=== PATIENT | female | born 1955 | race Caucasian/White ===

== ENCOUNTER → 2022-09-11 | Outpatient (REF) | payer MEDICARE ==
[2022-09-11 17:51] LABS: BASO # 0.1 10^3/uL (0.0-0.2); BASO % 0.8 % (0.0-1.0); EOS # 0.1 10^3/uL (0.0-0.5); EOS % 2.2 % (0.0-3.0); HEMATOCRIT 41.5 % (36.0-47.0); HEMOGLOBIN 13.7 g/dl (12.0-15.5); LYMPH # 1.5 10^3/uL (1.5-5.0); LYMPH % 23.7 % (24.0-44.0); MEAN CORPUSCULAR VOLUME 87.7 fl (80.0-96.0); MONO # 0.3 10^3/uL (0.0-0.8); MONO % 4.6 % (2.0-8.0); NEUTROPHILS # 4.5 10^3/uL (1.5-8.5); NEUTROPHILS % 68.4 % (36.0-66.0); PLATELET COUNT, AUTOMATED 175 10^3/uL (150-450); RED BLOOD COUNT 4.73 10^6/uL (4.00-5.40); WHITE BLOOD COUNT 6.5 10^3/uL (4.0-10.0)
[2022-09-11 17:58] LABS: ALBUMIN 3.3 G/DL (3.2-5.2); BILIRUBIN,TOTAL 0.3 MG/DL (0.3-1.2); CALCIUM LEVEL 9.1 MG/DL (8.3-10.6); CHOLESTEROL RISK RATIO 2.71 (<5); CREATININE FOR GFR 1.02 MG/DL (0.55-1.30); FREE T4 0.88 NG/DL (0.89-1.76); GLOMERULAR FILTRATION RATE 58.1 (>45); HDL CHOLESTEROL 91.6 MG/DL (>40); LDL CHOLESTEROL 124.2 MG/DL (<100); NON-HDL-C 157.4 MG/DL; POTASSIUM SERUM 4.2 MMOL/L (3.5-5.1); THYROID STIMULATING HORMONE 3.358 uIU/ML (0.55-4.78); TOTAL PROTEIN 6.4 G/DL (5.7-8.2)
[2022-09-11 17:59] LABS: FOLATE 10.21 NG/ML (>5.4)
[2022-09-11 18:00] LABS: TOTAL 25(OH) VITAMIN D 24.4 NG/ML (20.0-100.0)
[2022-09-11 18:13] LABS: HEMOGLOBIN A1c 5.2 % (4.0-6.0)
== END ==
LOC: M SFHCLERA 10:38
PROVIDERS: ATTEND Family Medicine
DX: E66.9 Obesity, unspecified (principal); R53.83 Other fatigue; Z79.899 Other long term (current) drug therapy

== ENCOUNTER → 2022-10-21 | Outpatient (CLI) | payer MEDICARE ==
[2022-10-21 11:43] LABS: AMORPHOUS SEDIMENT SMALL (NEGATIVE); APPEARANCE, URINE TURBID (CLEAR); BACTERIA, URINE AUTO NEGATIVE (NEGATIVE); BILIRUBIN, URINE AUTO 1+ (NEGATIVE); BLOOD, URINE BLOOD NEGATIVE (NEGATIVE); COLOR, URINE AMBER (YELLOW); GLUCOSE, URINE (UA) AUTO NEGATIVE (NEGATIVE); KETONE, URINE AUTO TRACE mg/dL (NEGATIVE); LEUKOCYTE ESTERASE, URINE AUTO TRACE (NEGATIVE); MUCUS, URINE LARGE (NEGATIVE); NITRITE, URINE AUTO NEGATIVE (NEGATIVE); PROTEIN, URINE AUTO NEGATIVE (NEGATIVE); RBC, URINE AUTO 0 /HPF (0-3); SPECIFIC GRAVITY URINE AUTO 1.029 (1.002-1.035); SQUAMOUS EPITHELIAL CELL UR AU 19 /HPF (0-6); WBC, URINE AUTO 13 /HPF (0-3)
== END ==
LOC: M LAB 09:58
PROVIDERS: ATTEND Nurse Practitioner Family
DX: L90.0 Lichen sclerosus et atrophicus (principal); Z79.899 Other long term (current) drug therapy

== ENCOUNTER → 2022-10-21 | Outpatient (REF) | payer MEDICARE | LOC: M SFHCDERM 09:48 | PROVIDERS: ATTEND Nurse Practitioner Family | DX: L90.0 Lichen sclerosus et atrophicus (principal) ==

== ENCOUNTER → 2022-11-27 | Outpatient (CLI) | payer MEDICARE ==
[2022-11-27 15:00] LABS: APPEARANCE, URINE TURBID (CLEAR); BACTERIA, URINE AUTO 2+ (NEGATIVE); BILIRUBIN, URINE AUTO NEGATIVE (NEGATIVE); BLOOD, URINE BLOOD 1+ (NEGATIVE); COLOR, URINE AMBER (YELLOW); GLUCOSE, URINE (UA) AUTO NEGATIVE (NEGATIVE); KETONE, URINE AUTO NEGATIVE (NEGATIVE); LEUKOCYTE ESTERASE, URINE AUTO TRACE (NEGATIVE); MUCUS, URINE SMALL (NEGATIVE); NITRITE, URINE AUTO NEGATIVE (NEGATIVE); PROTEIN, URINE AUTO NEGATIVE (NEGATIVE); RBC, URINE AUTO 8 /HPF (0-3); SPECIFIC GRAVITY URINE AUTO 1.017 (1.002-1.035); SQUAMOUS EPITHELIAL CELL UR AU 16 /HPF (0-6); UROBILINOGEN, URINE AUTO 0.2 mg/dL (0.0-2.0); WBC, URINE AUTO 8 /HPF (0-3)
[2022-11-28 11:11] LABS: HSV TYPE I IgG SPECIFIC 8.22 index (0.00-0.90); HSV TYPE II IgG SPECIFIC 9.04 index (0.00-0.90)
== END ==
LOC: M PLALAB 10:28
PROVIDERS: ATTEND Urology
DX: R30.0 Dysuria (principal)

== ENCOUNTER → 2023-01-02 | Outpatient (REF) | payer MEDICARE | LOC: M SFHCPLAZ 10:05 | PROVIDERS: ATTEND Nurse Practitioner Family | DX: L43.9 Lichen planus, unspecified (principal) ==

== ENCOUNTER → 2023-02-06 | Outpatient (REF) | payer MEDICARE | LOC: M SFHCPLAZ 09:32 | PROVIDERS: ATTEND Nurse Practitioner Family | DX: L43.9 Lichen planus, unspecified (principal) ==

== ENCOUNTER → 2023-04-29 | Outpatient (REF) | payer MEDICARE ==
[~2023-04-29] MED LIST: CITA20TA7 PO; CLOB0.0548 TOP; CLON1TAB8 PO; CVS1CRE56 TOP; ESTR2TAB3 PO; HYDR-4517 PO; HYDR200T46 PO; MELO15TA28 PO; NYST1POW9 TOP; OMEP-173 PO; RIZA5TAB52 PO; TRAZ-257 PO
== END ==
LOC: M SFHCLERA 16:44
PROVIDERS: ATTEND Family Medicine
DX: R05.9 Cough, unspecified (principal)

== ENCOUNTER 2023-05-04 13:34 | Observation (INO) | payer MEDICARE ==
[~2023-05-04] VITALS: Ht 154.9 cm; Wt 88.1 kg
[2023-05-04] MEDS ORDERED: fentaNYL 100 MCG/2 ML INJECTION IV ONE (15:10)
[2023-05-04] MEDS ORDERED: tiZANidine 4 MG TAB PO ONE (16:05)
[2023-05-04 16:56] LABS: BASO % 0.1 % (0.0-1.0); EOS % 0.1 % (0.0-3.0); HEMOGLOBIN 12.7 g/dl (12.0-15.5); LYMPH # 0.8 10^3/uL (1.5-5.0); LYMPH % 5.9 % (24.0-44.0); MEAN CORPUSCULAR HEMOGLOBIN 29.7 pg (27.0-33.0); MEAN CORPUSCULAR HGB CONC 34.3 g/dl (32.0-36.5); MEAN CORPUSCULAR VOLUME 86.4 fl (80.0-96.0); MONO # 0.4 10^3/uL (0.0-0.8); MONO % 2.9 % (2.0-8.0); NEUTROPHILS # 12.9 10^3/uL (1.5-8.5); PLATELET COUNT, AUTOMATED 196 10^3/uL (150-450); RED BLOOD COUNT 4.28 10^6/uL (4.00-5.40); WHITE BLOOD COUNT 14.3 10^3/uL (4.0-10.0)
[2023-05-04] MEDS ORDERED: CITA20TA7 PO (17:17)
[2023-05-04] MEDS ORDERED: CLOB0.0548 TOP (17:17)
[2023-05-04] MEDS ORDERED: OMEP-173 PO (17:17)
[2023-05-04] MEDS ORDERED: ESTR2TAB3 PO (17:17)
[2023-05-04] MEDS ORDERED: HYDR200T46 PO (17:17)
[2023-05-04] MEDS ORDERED: CLON1TAB8 PO (17:17)
[2023-05-04] MEDS ORDERED: CVS1CRE56 TOP (17:17)
[2023-05-04] MEDS ORDERED: TRAZ-257 PO (17:17)
[2023-05-04] MEDS ORDERED: HYDR-4517 PO (17:17)
[2023-05-04] MEDS ORDERED: MELO15TA28 PO (17:17)
[2023-05-04] MEDS ORDERED: NYST1POW9 TOP (17:17)
[2023-05-04] MEDS ORDERED: RIZA5TAB52 PO (17:17)
[2023-05-04] MEDS ORDERED: ONDANSETRON 4MG 2ML VIAL IV PRN (17:20)
[2023-05-04] MEDS ORDERED: HOME MED LIST COMPLETE! XX SCH (17:20)
[2023-05-04] MEDS ORDERED: ACETAMINOPHEN 500 MG TAB PO PRN (17:20)
[2023-05-04] MEDS ORDERED: MORPHINE 2 MG/ML 1ML VIAL IV PRN (17:20)
[2023-05-04 17:28] LABS: BLOOD UREA NITROGEN 16 MG/DL (9-23); CALCIUM LEVEL 8.4 MG/DL (8.3-10.6); CARBON DIOXIDE LEVEL 27 MMOL/L (20-31); CHLORIDE LEVEL 104 MMOL/L (98-107); GLOMERULAR FILTRATION RATE > 60.0 (>45); GLUCOSE, FASTING 117 MG/DL (74-106); POTASSIUM SERUM 3.2 MMOL/L (3.5-5.1); SODIUM LEVEL 138 MMOL/L (136-145)
[2023-05-04] MEDS: LR 1,000 ML IV SCH (17:48)
[2023-05-04] MEDS: traZODone 100 MG TAB PO SCH (21:24)
[2023-05-04] MEDS: CitaloPRAM (CeleXA) 20 MG TAB PO SCH (21:24)
[2023-05-04] MEDS: HYDROXYCHLOROQUINE 200 MG TAB PO SCH (21:24)
[2023-05-04] MEDS: clonazePAM 1 MG TAB PO PRN (21:25)
[2023-05-04] MEDS: MORPHINE 2 MG/ML 1ML VIAL IV PRN (21:26)
[2023-05-05] VITALS (9 sets, daily range): BP systolic 124–165; BP diastolic 71–80; TEMP 97.6–98.2; O2SAT 93–96
[2023-05-05 00:13] LABS: CK-MB VALUE MASS < 1.0 NG/ML (<3.6)
[2023-05-05 00:15] LABS: CPK CREATINE PHOSPHOKINASE 109 U/L (34-145); MB/CK RELATIVE INDEX 0.91 (< OR =4)
[2023-05-05 06:09] LABS: HEMATOCRIT 33.2 % (36.0-47.0); HEMOGLOBIN 11.3 g/dl (12.0-15.5); MEAN CORPUSCULAR VOLUME 88.1 fl (80.0-96.0); PLATELET COUNT, AUTOMATED 153 10^3/uL (150-450); RED BLOOD COUNT 3.77 10^6/uL (4.00-5.40); WHITE BLOOD COUNT 6.5 10^3/uL (4.0-10.0)
[2023-05-05 06:30] LABS: BLOOD UREA NITROGEN 13 MG/DL (9-23); CARBON DIOXIDE LEVEL 29 MMOL/L (20-31); CHLORIDE LEVEL 107 MMOL/L (98-107); CREATININE FOR GFR 0.88 MG/DL (0.55-1.30); GLOMERULAR FILTRATION RATE > 60.0 (>45); GLUCOSE, FASTING 90 MG/DL (74-106); MAGNESIUM LEVEL 1.5 MG/DL (1.8-2.4); POTASSIUM SERUM 3.3 MMOL/L (3.5-5.1); SODIUM LEVEL 140 MMOL/L (136-145)
[2023-05-05] MEDS: LR 1,000 ML IV SCH ×3 (06:40→11:58)
[2023-05-05 08:08] LABS: CK-MB VALUE MASS < 1.0 NG/ML (<3.6)
[2023-05-05 08:10] LABS: CPK CREATINE PHOSPHOKINASE 120 U/L (34-145); MB/CK RELATIVE INDEX 0.83 (< OR =4)
[2023-05-05] MEDS: OMEPRAZOLE 20MG CAP PO SCH (08:13)
[2023-05-05] MEDS: MAG SULF 1GM/100ML (MAG RUN) 1 GM in IV 1 EA IV SCH ×3 (08:13→11:56)
[2023-05-05] MEDS: MORPHINE 2 MG/ML 1ML VIAL IV PRN ×3 (08:13→20:49)
[2023-05-05] MEDS ORDERED: POTASSIUM CHLORIDE 10MEQ SR TABLET PO ONE (09:00)
[2023-05-05] MEDS: LIDOCAINE 5% (LIDODERM) PATCH TD SCH (11:59)
[2023-05-05] MEDS: ACETAMINOPHEN 500 MG TAB PO SCH ×2 (12:06→18:00)
[2023-05-05] MEDS ORDERED: MORPHINE 2 MG/ML 1ML VIAL IV PRN (13:20)
[2023-05-05] MEDS: CYCLOBENZAPRINE 5MG TABLET PO SCH ×2 (14:00→22:27)
[2023-05-05] MEDS ORDERED: RIZATRIPTAN MLT 10 MG TAB PO PRN (15:05)
[2023-05-05] MEDS ORDERED: MIDAZOLAM INJ 2MG/2ML VIAL As Ordered ONE (15:43)
[2023-05-05] MEDS ORDERED: propofoL 200 MG/20 ML VIAL As Ordered ONE (15:43)
[2023-05-05] MEDS ORDERED: ONDANSETRON 4MG 2ML VIAL As Ordered ONE (15:43)
[2023-05-05] MEDS ORDERED: ACETAMINOPHEN 1000MG 100ML IV BAG As Ordered ONE (15:43)
[2023-05-05] MEDS ORDERED: LIDOCAINE 2% 100MG/5ML SDV (FOR ANES.) As Ordered ONE (15:43)
[2023-05-05] MEDS ORDERED: fentaNYL 100 MCG/2 ML INJECTION As Ordered ONE (15:44)
[2023-05-05] MEDS ORDERED: ceFAZolin 2 GM/D5W 50 ML IV BAG As Ordered ONE (16:00)
[2023-05-05] MEDS ORDERED: oxyCODONE 5MG TAB PO PRN (17:25)
[2023-05-05] MEDS ORDERED: LR 1,000 ML IV SCH (17:25)
[2023-05-05] MEDS ORDERED: ONDANSETRON 4MG 2ML VIAL IV PRN (17:25)
[2023-05-05] MEDS ORDERED: HYDROMORPHONE HCL 0.5 MG/ 0.5 ML SYRINGE IV PRN (17:25)
[2023-05-05] MEDS: fentaNYL 100 MCG/2 ML INJECTION IV PRN ×3 (17:59→18:18)
[2023-05-05 20:59] LABS: CK-MB VALUE MASS 2.5 NG/ML (<3.6)
[2023-05-05 21:04] LABS: MB/CK RELATIVE INDEX 0.65 (< OR =4)
[2023-05-05] MEDS: HYDROXYCHLOROQUINE 200 MG TAB PO SCH (22:27)
[2023-05-05] MEDS: traZODone 100 MG TAB PO SCH (22:27)
[2023-05-05] MEDS: clonazePAM 1 MG TAB PO PRN (22:27)
[2023-05-05] MEDS: ceFAZolin SOD 2 GM in IV 1 EA IV SCH (22:28)
[2023-05-05] MEDS: CitaloPRAM (CeleXA) 20 MG TAB PO SCH (22:28)
[2023-05-06] VITALS (12 sets, daily range): BP systolic 122–150; BP diastolic 69–81; TEMP 97.8–98.1; O2SAT 89–97
[2023-05-06] MEDS: LR 1,000 ML IV SCH ×2 (00:08→07:19)
[2023-05-06] MEDS: ACETAMINOPHEN 500 MG TAB PO SCH ×3 (01:14→12:00)
[2023-05-06] MEDS ORDERED: CALCIUM CARBONATE 500 MG CHEW U/D PO ONE (02:00)
[2023-05-06] MEDS: MORPHINE 2 MG/ML 1ML VIAL IV PRN (05:24)
[2023-05-06] MEDS: ceFAZolin SOD 2 GM in IV 1 EA IV SCH (06:06)
[2023-05-06] MEDS: CYCLOBENZAPRINE 5MG TABLET PO SCH (06:06)
[2023-05-06 06:36] LABS: HEMATOCRIT 30.8 % (36.0-47.0); HEMOGLOBIN 10.6 g/dl (12.0-15.5); MEAN CORPUSCULAR HEMOGLOBIN 30.5 pg (27.0-33.0); MEAN CORPUSCULAR HGB CONC 34.4 g/dl (32.0-36.5); MEAN CORPUSCULAR VOLUME 88.8 fl (80.0-96.0); PLATELET COUNT, AUTOMATED 174 10^3/uL (150-450); RED BLOOD COUNT 3.47 10^6/uL (4.00-5.40); WHITE BLOOD COUNT 12.5 10^3/uL (4.0-10.0)
[2023-05-06 07:10] LABS: BLOOD UREA NITROGEN 9 MG/DL (9-23); CALCIUM LEVEL 8.1 MG/DL (8.3-10.6); CARBON DIOXIDE LEVEL 26 MMOL/L (20-31); CHLORIDE LEVEL 107 MMOL/L (98-107); CREATININE FOR GFR 0.97 MG/DL (0.55-1.30); GLOMERULAR FILTRATION RATE > 60.0 (>45); GLUCOSE, FASTING 113 MG/DL (74-106); MAGNESIUM LEVEL 1.9 MG/DL (1.8-2.4); SODIUM LEVEL 139 MMOL/L (136-145)
[2023-05-06] MEDS ORDERED: oxyCODONE 5MG TAB PO PRN ×2 (08:55)
[2023-05-06] MEDS ORDERED: MELOXICAM (MOBIC) 7.5 MG TAB PO SCH (09:00)
[2023-05-06] MEDS: OMEPRAZOLE 20MG CAP PO SCH (09:03)
[2023-05-06] MEDS: LIDOCAINE 5% (LIDODERM) PATCH TD SCH (09:04)
[2023-05-06] MEDS ORDERED: HYDR-4517 PO ×2 (10:56→11:43)
[2023-05-06] MEDS ORDERED: LIDO5TD TD ×2 (10:56→11:43)
[2023-05-06] MEDS ORDERED: ACET-683 PO ×2 (10:56→11:43)
[2023-05-06] MEDS ORDERED: CYCL5TAB PO ×2 (10:56→11:43)
[2023-05-06] MEDS ORDERED: estradioL 1 MG TAB PO SCH (21:00)
== END 2023-05-06 13:30 | disposition home health service (06) ==
LOC: M ED 13:34 → EDBD 13:34 → M ED INP 13:35 → M MS4PR 05-05 14:20
PROVIDERS: ADMIT Family Medicine; ATTEND Family Medicine
DX: S42.331A Displaced oblique fracture of shaft of humerus, right arm, initial encounter for closed fracture (principal); S02.2XXA Fracture of nasal bones, initial encounter for closed fracture; W00.0XXA Fall on same level due to ice and snow, initial encounter; Y92.410 Unspecified street and highway as the place of occurrence of the external cause; Y93.01 Activity, walking, marching and hiking; Y99.9 Unspecified external cause status; E87.6 Hypokalemia; M54.9 Dorsalgia, unspecified; G89.29 Other chronic pain; K21.9 Gastro-esophageal reflux disease without esophagitis; F41.9 Anxiety disorder, unspecified; G43.909 Migraine, unspecified, not intractable, without status migrainosus; N95.8 Other specified menopausal and perimenopausal disorders; R94.31 Abnormal electrocardiogram [ECG] [EKG]; L43.9 Lichen planus, unspecified; G47.00 Insomnia, unspecified; Z98.1 Arthrodesis status; Z79.899 Other long term (current) drug therapy; Z79.890 Hormone replacement therapy; Z79.891 Long term (current) use of opiate analgesic; Z87.891 Personal history of nicotine dependence
CPT/HCPCS: 24515; 36415; 70450; 70486; 71045; 72125; 73060; 76000; 80048; 82550; 82553; 83735; 84484; 85025; 85027; 87635; 93005; 96365; 96366; 96367; 96374; 96375; 96376; 97161; 97530; 99285; C1713; G0378; J0131; J0665; J0690; J1100; J2250; J2405; J3010; J3475

== ENCOUNTER → 2023-05-13 | Outpatient (CLI) | payer MEDICARE ==
[~2023-05-13] MED LIST changes: +ACET-683 PO; +CYCL5TAB PO; +LIDO5TD TD
== END ==
LOC: M SOG 08:03
PROVIDERS: ATTEND Orthopaedic Surgery
DX: S42.351A Displaced comminuted fracture of shaft of humerus, right arm, initial encounter for closed fracture (principal); R22.31 Localized swelling, mass and lump, right upper limb

== ENCOUNTER → 2023-05-29 | Outpatient (CLI) | payer MEDICARE | LOC: M SOG 07:55 | PROVIDERS: ATTEND Orthopaedic Surgery | DX: S42.351D Displaced comminuted fracture of shaft of humerus, right arm, subsequent encounter for fracture with routine healing (principal) ==

== ENCOUNTER → 2023-07-03 | Outpatient (CLI) | payer MEDICARE | LOC: M SOG 07:57 | PROVIDERS: ATTEND Orthopaedic Surgery | DX: S42.351A Displaced comminuted fracture of shaft of humerus, right arm, initial encounter for closed fracture (principal); Y93.9 Activity, unspecified; Y92.9 Unspecified place or not applicable ==

== ENCOUNTER → 2023-07-14 | Outpatient (CLI) | payer MEDICARE | LOC: M SOG 09:24 | PROVIDERS: ATTEND Physician Assistant | DX: S42.351D Displaced comminuted fracture of shaft of humerus, right arm, subsequent encounter for fracture with routine healing (principal) ==

== ENCOUNTER → 2023-07-24 | Outpatient (CLI) | payer MEDICARE | LOC: M SOG 13:44 | PROVIDERS: ATTEND Orthopaedic Surgery | DX: S42.351D Displaced comminuted fracture of shaft of humerus, right arm, subsequent encounter for fracture with routine healing (principal) ==

== ENCOUNTER → 2023-07-24 | Outpatient (CLI) | payer MEDICARE | LOC: M SOG 13:41 | PROVIDERS: ATTEND Orthopaedic Surgery | DX: S42.351D Displaced comminuted fracture of shaft of humerus, right arm, subsequent encounter for fracture with routine healing (principal) ==

== ENCOUNTER → 2023-07-30 | Outpatient (CLI) | payer MEDICARE ==
[2023-07-30 13:38] LABS: APPEARANCE, URINE HAZY (CLEAR); BACTERIA, URINE AUTO 1+ (NEGATIVE); BASO % 0.6 % (0.0-1.0); BILIRUBIN, URINE AUTO NEGATIVE (NEGATIVE); BLOOD, URINE BLOOD NEGATIVE (NEGATIVE); COLOR, URINE YELLOW (YELLOW); EOS # 0.1 10^3/uL (0.0-0.5); EOS % 1.4 % (0.0-3.0); GLUCOSE, URINE (UA) AUTO NEGATIVE (NEGATIVE); HEMATOCRIT 39.1 % (36.0-47.0); HEMOGLOBIN 13.2 g/dl (12.0-15.5); KETONE, URINE AUTO NEGATIVE (NEGATIVE); LEUKOCYTE ESTERASE, URINE AUTO 2+ (NEGATIVE); LYMPH # 1.2 10^3/uL (1.5-5.0); MEAN CORPUSCULAR HEMOGLOBIN 29.4 pg (27.0-33.0); MEAN CORPUSCULAR HGB CONC 33.8 g/dl (32.0-36.5); MEAN CORPUSCULAR VOLUME 87.1 fl (80.0-96.0); MONO # 0.3 10^3/uL (0.0-0.8); MONO % 5.6 % (2.0-8.0); MUCUS, URINE SMALL (NEGATIVE); NEUTROPHILS # 3.3 10^3/uL (1.5-8.5); NEUTROPHILS % 67.2 % (36.0-66.0); NITRITE, URINE AUTO NEGATIVE (NEGATIVE); PLATELET COUNT, AUTOMATED 180 10^3/uL (150-450); PROTEIN, URINE AUTO NEGATIVE (NEGATIVE); RBC, URINE AUTO 3 /HPF (0-3); RED BLOOD COUNT 4.49 10^6/uL (4.00-5.40); SPECIFIC GRAVITY URINE AUTO 1.015 (1.002-1.035); SQUAMOUS EPITHELIAL CELL UR AU 3 /HPF (0-6); UROBILINOGEN, URINE AUTO 0.2 mg/dL (0.0-2.0); WBC, URINE AUTO 7 /HPF (0-3)
[2023-07-30 13:43] LABS: ERYTHROCYTE SEDIMENTATION RATE 8 mm/hr (0-30)
== END ==
LOC: M RAD 12:16
PROVIDERS: ATTEND Orthopaedic Surgery Hand Surgery
DX: Z78.9 Other specified health status (principal); Z79.899 Other long term (current) drug therapy

== ENCOUNTER 2023-08-05 06:04 | Inpatient (IN) | payer MEDICARE ==
[2023-08-05] VITALS (10 sets, daily range): BP systolic 74–121; BP diastolic 40–73; TEMP 97.9–98.4; O2SAT 92–95
[~2023-08-05] VITALS: Ht 154.9 cm; Wt 87.8 kg
[2023-08-05] MEDS ORDERED: LR 1,000 ML IV SCH (06:25)
[2023-08-05] MEDS ORDERED: LIDOCAINE 2% 100MG/5ML SDV (FOR ANES.) As Ordered ONE (06:42)
[2023-08-05] MEDS ORDERED: propofoL 200 MG/20 ML VIAL As Ordered ONE (06:42)
[2023-08-05] MEDS ORDERED: ACETAMINOPHEN 1000MG 100ML IV BAG As Ordered ONE (06:42)
[2023-08-05] MEDS ORDERED: KETOROLAC 60MG 2ML VIAL As Ordered ONE (06:43)
[2023-08-05] MEDS ORDERED: SUGAMMADEX SODIUM 500 MG/5 ML VIAL (BRIDION) As Ordered ONE (06:43)
[2023-08-05] MEDS ORDERED: ONDANSETRON 4MG 2ML VIAL As Ordered ONE (06:43)
[2023-08-05] MEDS ORDERED: ROCURONIUM BROMIDE 50MG/5ML VIAL As Ordered ONE (06:43)
[2023-08-05] MEDS ORDERED: MIDAZOLAM INJ 2MG/2ML VIAL As Ordered ONE (06:46)
[2023-08-05] MEDS ORDERED: fentaNYL 100 MCG/2 ML INJECTION As Ordered ONE (06:46)
[2023-08-05] MEDS: BACITRACIN OINTMENT 30GM TUBE As Ordered ONE (07:13)
[2023-08-05] MEDS: dexAMETHasone 10MG/1ML VIAL PRES.FREE PN ONE (07:15)
[2023-08-05] MEDS: LIDOCAINE 1% SDV 5ML VIAL PN ONE (07:15)
[2023-08-05] MEDS: MIDAZOLAM INJ 2MG/2ML VIAL IV PRN (07:35)
[2023-08-05] MEDS: fentaNYL 100 MCG/2 ML INJECTION IV PRN (07:40)
[2023-08-05] MEDS: EPINEPHrine INJ 1 MG/ML 1ML AMP PN ONE (07:40)
[2023-08-05] MEDS: ROPIvacaine 0.5% 30ML VIAL PN ONE (07:45)
[2023-08-05] MEDS: ceFAZolin SOD 2 GM in IV 1 EA IV ONE (08:25)
[2023-08-05] MEDS: LIDOCAINE W/EPINEPHRINE 1% 20ML VIAL As Ordered ONE (08:35)
[2023-08-05] MEDS ORDERED: PHENYLephrine 500MCG 5ML (100MCG/ML) SYRINGE As Ordered ONE (08:39)
[2023-08-05] MEDS ORDERED: HYDROmorphone HCL 2MG/ML 1ML VIAL As Ordered ONE (10:16)
[2023-08-05] MEDS: TRANEXAMIC ACID 100 MG/ML 10ML VIAL As Ordered ONE (12:30)
[2023-08-05] MEDS: VANCOMYCIN 1000MG/20ML VIAL As Ordered ONE (12:40)
[2023-08-05] MEDS ORDERED: PHENYLEPHRINE 10MG/ML 1ML VIAL As Ordered ONE (12:54)
[2023-08-05] MEDS ORDERED: oxyCODONE 5MG TAB PO PRN ×2 (13:55→14:20)
[2023-08-05] MEDS ORDERED: fentaNYL 100 MCG/2 ML INJECTION IV PRN (13:55)
[2023-08-05] MEDS ORDERED: ONDANSETRON 4MG 2ML VIAL IV PRN (13:55)
[2023-08-05] MEDS ORDERED: ACETAMINOPHEN TAB 650MG DOSE (2X325MG) PO PRN ×2 (14:20→23:15)
[2023-08-05] MEDS ORDERED: zolPIDEM TARTRATE 5 MG TAB PO PRN (14:20)
[2023-08-05] MEDS ORDERED: SENNA 8.6 MG TAB (SENOKOT) PO PRN (14:20)
[2023-08-05] MEDS ORDERED: diphenhydrAMINE 50MG/ML VIAL IV PRN (14:20)
[2023-08-05] MEDS ORDERED: MORPHINE 4 MG/ML 1ML VIAL IV PRN (14:20)
[2023-08-05] MEDS: METOCLOPRAMIDE INJ 10MG/2ML VIAL IV PRN (14:36)
[2023-08-05] MEDS: LR 1,000 ML IV SCH (14:37)
[2023-08-05] MEDS ORDERED: KETOROLAC 30 MG/ML 1ML VIAL IV SCH (15:00)
[2023-08-05] MEDS ORDERED: clonazePAM 1 MG TAB PO PRN (16:15)
[2023-08-05] MEDS ORDERED: PILL CUTTER 1 EACH XX ONE (16:24)
[2023-08-05] MEDS: ceFAZolin SOD 2 GM in IV 1 EA IV SCH (16:28)
[2023-08-05] MEDS: HYDROmorphone 2 MG TAB PO PRN (16:29)
[2023-08-05] MEDS: RIZATRIPTAN MLT 10 MG TAB PO PRN (16:53)
[2023-08-05] MEDS: KETOROLAC 30 MG/ML 1ML VIAL IV SCH (18:02)
[2023-08-05] MEDS: NS 1,000 ML IV ONE (23:07)
[2023-08-05] MEDS: NYSTATIN 100,000 UNITS/GM TOPICAL PWD 15GM TOP SCH (23:09)
[2023-08-05] MEDS: HYDROXYCHLOROQUINE 200 MG TAB PO SCH (23:09)
[2023-08-05] MEDS: CLOBETASOL PROPIONATE EMOLLIENT 0.05% CR 60 GM TOP SCH (23:10)
[2023-08-05] MEDS: CitaloPRAM (CeleXA) 20 MG TAB PO SCH (23:30)
[2023-08-05] MEDS: traZODone 100 MG TAB PO SCH (23:30)
[2023-08-05] MEDS: DOCUSATE SODIUM 100MG CAPSULE PO SCH (23:30)
[2023-08-05] MEDS: estradioL 1 MG TAB PO SCH (23:31)
[2023-08-05 23:44] LABS: VENOUS BASE EXCESS -0.6 (-2.0-2.0); VENOUS HCO3 23.8 MMOL/L (23.0-27.0); VENOUS O2 SATURATION 96.9 % (60.0-80.0); VENOUS PARTIAL PRESSURE CO2 38.1 mmHg (38.0-50.0); VENOUS PARTIAL PRESSURE O2 100.5 mmHg (30.0-50.0); VENOUS PH 7.413 UNITS (7.330-7.430); VENOUS STANDARD HCO3 23.9 MMOL/L; VENOUS TOTAL CO2 24.9 MMOL/L (24.0-28.0)
[2023-08-06] VITALS (9 sets, daily range): BP systolic 97–129; BP diastolic 48–76; TEMP 97.7–97.9; O2SAT 94–97
[2023-08-06 00:14] LABS: ALBUMIN 2.4 G/DL (3.2-5.2); ALKALINE PHOSPHATASE 68 U/L (46-116); ALT/SGPT < 9 U/L (7.0-40); AST/SGOT 11 U/L (<34); BILIRUBIN,TOTAL 0.2 MG/DL (0.3-1.2); BLOOD UREA NITROGEN 13 MG/DL (9-23); CALCIUM LEVEL 7.6 MG/DL (8.3-10.6); CARBON DIOXIDE LEVEL 26 MMOL/L (20-31); CHLORIDE LEVEL 109 MMOL/L (98-107); CREATININE FOR GFR 0.86 MG/DL (0.55-1.30); GLOMERULAR FILTRATION RATE > 60.0 (>45); GLUCOSE, FASTING 104 MG/DL (74-106); MAGNESIUM LEVEL 1.2 MG/DL (1.8-2.4); POTASSIUM SERUM 3.6 MMOL/L (3.5-5.1); SODIUM LEVEL 140 MMOL/L (136-145); TOTAL PROTEIN 4.5 G/DL (5.7-8.2)
[2023-08-06] MEDS: ACETAMINOPHEN *IV* 1,000 MG in IV 1 EA IV ONE (00:30)
[2023-08-06 00:39] LABS: BASO % 0.1 % (0.0-1.0); HEMATOCRIT 25.2 % (36.0-47.0); HEMOGLOBIN 8.6 g/dl (12.0-15.5); LYMPH # 0.7 10^3/uL (1.5-5.0); LYMPH % 8.4 % (24.0-44.0); MEAN CORPUSCULAR HEMOGLOBIN 29.3 pg (27.0-33.0); MEAN CORPUSCULAR HGB CONC 34.1 g/dl (32.0-36.5); MEAN CORPUSCULAR VOLUME 85.7 fl (80.0-96.0); MONO # 0.5 10^3/uL (0.0-0.8); NEUTROPHILS # 6.5 10^3/uL (1.5-8.5); NEUTROPHILS % 83.7 % (36.0-66.0); PLATELET COUNT, AUTOMATED 149 10^3/uL (150-450); RED BLOOD COUNT 2.94 10^6/uL (4.00-5.40); WHITE BLOOD COUNT 7.8 10^3/uL (4.0-10.0)
[2023-08-06] MEDS: MAGNESIUM OXIDE 400MG TAB (MAG-OX) PO ONE (00:50)
[2023-08-06] MEDS: MAG SULF 1GM/100ML (MAG RUN) 1 GM in IV 1 EA IV SCH (01:37)
[2023-08-06] MEDS: oxyCODONE 5MG TAB PO PRN ×2 (03:22→07:44)
[2023-08-06 06:20] LABS: BASO % 0.1 % (0.0-1.0); EOS % 0.1 % (0.0-3.0); HEMOGLOBIN 8.6 g/dl (12.0-15.5); LYMPH # 1.1 10^3/uL (1.5-5.0); LYMPH % 14.2 % (24.0-44.0); MEAN CORPUSCULAR HEMOGLOBIN 29.3 pg (27.0-33.0); MEAN CORPUSCULAR HGB CONC 34.4 g/dl (32.0-36.5); MONO # 0.6 10^3/uL (0.0-0.8); MONO % 7.7 % (2.0-8.0); NEUTROPHILS # 6.2 10^3/uL (1.5-8.5); NEUTROPHILS % 77.5 % (36.0-66.0); PLATELET COUNT, AUTOMATED 144 10^3/uL (150-450); RED BLOOD COUNT 2.94 10^6/uL (4.00-5.40)
[2023-08-06 06:48] LABS: BLOOD UREA NITROGEN 12 MG/DL (9-23); CALCIUM LEVEL 7.6 MG/DL (8.3-10.6); CARBON DIOXIDE LEVEL 28 MMOL/L (20-31); CHLORIDE LEVEL 107 MMOL/L (98-107); CREATININE FOR GFR 0.86 MG/DL (0.55-1.30); GLOMERULAR FILTRATION RATE > 60.0 (>45); GLUCOSE, FASTING 92 MG/DL (74-106); MAGNESIUM LEVEL 2.2 MG/DL (1.8-2.4); POTASSIUM SERUM 3.4 MMOL/L (3.5-5.1); SODIUM LEVEL 140 MMOL/L (136-145)
[2023-08-06] MEDS: POTASSIUM CHLORIDE 10MEQ SR TABLET PO ONE (08:40)
[2023-08-06] MEDS: CLOTRIMAZOLE 1% TOPICAL CREAM 30GM TOP SCH (08:41)
[2023-08-06] MEDS: OMEPRAZOLE 20MG CAP PO SCH (08:41)
[2023-08-06] MEDS: MAGNESIUM OXIDE 400MG TAB (MAG-OX) PO SCH (08:41)
[2023-08-06] MEDS ORDERED: RIZATRIPTAN MLT 10 MG TAB PO PRN (08:50)
[2023-08-06] MEDS: NS 1,000 ML IV ONE (09:46)
[2023-08-06] MEDS: KETOROLAC 30 MG/ML 1ML VIAL IV ONE (09:47)
[2023-08-06] MEDS: diphenhydrAMINE 50MG/ML VIAL IV ONE (09:47)
[2023-08-06] MEDS: METOCLOPRAMIDE INJ 10MG/2ML VIAL IV ONE (09:47)
[2023-08-06] MEDS: MORPHINE 2 MG/ML 1ML VIAL IV PRN (09:48)
[2023-08-06] MEDS: ceFAZolin SOD 2 GM in IV 1 EA IV SCH (15:51)
[2023-08-06] MEDS: clonazePAM 1 MG TAB PO PRN (20:10)
[2023-08-06] MEDS ORDERED: ENOXAPARIN 40MG/0.4ML SYRINGE (J1650 PER 10MG) SC SCH (21:00)
[2023-08-07 02:00] VITALS: BP 128/71; TEMP 97.9; O2SAT 96
[2023-08-07 07:56] LABS: BLOOD UREA NITROGEN 12 MG/DL (9-23); CARBON DIOXIDE LEVEL 28 MMOL/L (20-31); CHLORIDE LEVEL 108 MMOL/L (98-107); CREATININE FOR GFR 0.79 MG/DL (0.55-1.30); GLOMERULAR FILTRATION RATE > 60.0 (>45); GLUCOSE, FASTING 85 MG/DL (74-106); SODIUM LEVEL 139 MMOL/L (136-145)
[2023-08-07 08:04] LABS: HEMATOCRIT 23.1 % (36.0-47.0); HEMOGLOBIN 7.8 g/dl (12.0-15.5); MEAN CORPUSCULAR HEMOGLOBIN 29.2 pg (27.0-33.0); MEAN CORPUSCULAR HGB CONC 33.8 g/dl (32.0-36.5); MEAN CORPUSCULAR VOLUME 86.5 fl (80.0-96.0); RED BLOOD COUNT 2.67 10^6/uL (4.00-5.40); WHITE BLOOD COUNT 5.5 10^3/uL (4.0-10.0)
[2023-08-07] MEDS ORDERED: MORPHINE 2 MG/ML 1ML VIAL IV PRN (10:45)
[2023-08-07] MEDS ORDERED: ACETAMINOPHEN TAB 650MG DOSE (2X325MG) PO SCH (12:00)
[2023-08-07 12:16] LABS: HEMATOCRIT 26.7 % (36.0-47.0)
[2023-08-07] MEDS: CYCLOBENZAPRINE 5MG TABLET PO SCH (13:27)
[2023-08-07] MEDS: KETOROLAC 30 MG/ML 1ML VIAL IV SCH (13:28)
[2023-08-07] MEDS: ACETAMINOPHEN 500 MG TAB PO SCH (13:50)
[2023-08-07 14:00] VITALS: BP 122/70; TEMP 98.2; O2SAT 94
[2023-08-07] MEDS: MORPHINE 2 MG/ML 1ML VIAL IV PRN (16:46)
[2023-08-07] MEDS: GABAPENTIN 100 MG CAP PO SCH (16:46)
[2023-08-07 21:42] VITALS: BP 119/67; TEMP 97.9; O2SAT 95
[2023-08-08 05:22] VITALS: BP 129/73; TEMP 98.1; O2SAT 94
[2023-08-08 06:22] LABS: HEMATOCRIT 24.6 % (36.0-47.0); HEMOGLOBIN 7.9 g/dl (12.0-15.5); MEAN CORPUSCULAR HEMOGLOBIN 28.5 pg (27.0-33.0); MEAN CORPUSCULAR HGB CONC 32.1 g/dl (32.0-36.5); MEAN CORPUSCULAR VOLUME 88.8 fl (80.0-96.0); PLATELET COUNT, AUTOMATED 144 10^3/uL (150-450); RED BLOOD COUNT 2.77 10^6/uL (4.00-5.40); WHITE BLOOD COUNT 5.4 10^3/uL (4.0-10.0)
[2023-08-08 06:44] LABS: BLOOD UREA NITROGEN 12 MG/DL (9-23); CALCIUM LEVEL 7.9 MG/DL (8.3-10.6); CARBON DIOXIDE LEVEL 28 MMOL/L (20-31); CHLORIDE LEVEL 108 MMOL/L (98-107); CREATININE FOR GFR 0.83 MG/DL (0.55-1.30); GLOMERULAR FILTRATION RATE > 60.0 (>45); GLUCOSE, FASTING 93 MG/DL (74-106); SODIUM LEVEL 141 MMOL/L (136-145)
[2023-08-08 08:42] LABS: PROCALCITONIN 0.07 ng/ml
[2023-08-08] MEDS: GABAPENTIN 100 MG CAP PO SCH (09:00)
[2023-08-08] MEDS: MIRALAX *UNIT DOSE* 17GM PACKET PO SCH (09:00)
[2023-08-08] MEDS: FIORICET TAB PO ONE (10:08)
[2023-08-08 11:43] LABS: HEMOGLOBIN 8.3 g/dl (12.0-15.5); MEAN CORPUSCULAR HEMOGLOBIN 28.6 pg (27.0-33.0); MEAN CORPUSCULAR HGB CONC 31.9 g/dl (32.0-36.5); MEAN CORPUSCULAR VOLUME 89.7 fl (80.0-96.0); PLATELET COUNT, AUTOMATED 147 10^3/uL (150-450)
[2023-08-08] MEDS: CYCLOBENZAPRINE 10MG TABLET PO SCH (11:47)
[2023-08-08] MEDS: KETOROLAC 30 MG/ML 1ML VIAL IV SCH ×2 (11:47→18:36)
[2023-08-08] MEDS: oxyCODONE 5MG TAB PO PRN ×2 (13:24→21:35)
[2023-08-08 15:45] VITALS: BP 104/61; TEMP 97.9; O2SAT 98
[2023-08-08] MEDS: ceFAZolin SOD 1 GM in IV 1 EA IV SCH (16:29)
[2023-08-08 19:45] VITALS: BP 143/80; TEMP 97.7; O2SAT 97
[2023-08-09 05:53] VITALS: BP 129/68; TEMP 98.2; O2SAT 96
[2023-08-09 07:16] LABS: BASO % 0.7 % (0.0-1.0); EOS # 0.2 10^3/uL (0.0-0.5); EOS % 4.1 % (0.0-3.0); HEMATOCRIT 24.9 % (36.0-47.0); LYMPH # 1.3 10^3/uL (1.5-5.0); LYMPH % 29.4 % (24.0-44.0); MEAN CORPUSCULAR HEMOGLOBIN 29.3 pg (27.0-33.0); MEAN CORPUSCULAR HGB CONC 32.1 g/dl (32.0-36.5); MEAN CORPUSCULAR VOLUME 91.2 fl (80.0-96.0); MONO # 0.3 10^3/uL (0.0-0.8); MONO % 6.2 % (2.0-8.0); NEUTROPHILS # 2.6 10^3/uL (1.5-8.5); NEUTROPHILS % 59.1 % (36.0-66.0); PLATELET COUNT, AUTOMATED 147 10^3/uL (150-450); RED BLOOD COUNT 2.73 10^6/uL (4.00-5.40); WHITE BLOOD COUNT 4.4 10^3/uL (4.0-10.0)
[2023-08-09 07:56] LABS: BLOOD UREA NITROGEN 12 MG/DL (9-23); CARBON DIOXIDE LEVEL 30 MMOL/L (20-31); CHLORIDE LEVEL 107 MMOL/L (98-107); CREATININE FOR GFR 0.83 MG/DL (0.55-1.30); GLOMERULAR FILTRATION RATE > 60.0 (>45); GLUCOSE, FASTING 84 MG/DL (74-106); SODIUM LEVEL 140 MMOL/L (136-145)
[2023-08-09 14:00] VITALS: BP 111/67; TEMP 97.7; O2SAT 96
[2023-08-09 21:00] VITALS: BP 110/73; TEMP 98.1; O2SAT 97
[2023-08-10 05:41] VITALS: BP 144/88; TEMP 97.5; O2SAT 95
[2023-08-10] MEDS ORDERED: PILL CUTTER 1 EACH XX PRN (06:25)
[2023-08-10 06:49] LABS: BLOOD UREA NITROGEN 11 MG/DL (9-23); CALCIUM LEVEL 8.2 MG/DL (8.3-10.6); CARBON DIOXIDE LEVEL 27 MMOL/L (20-31); CHLORIDE LEVEL 105 MMOL/L (98-107); CREATININE FOR GFR 0.93 MG/DL (0.55-1.30); GLOMERULAR FILTRATION RATE > 60.0 (>45); GLUCOSE, FASTING 84 MG/DL (74-106); POTASSIUM SERUM 4.3 MMOL/L (3.5-5.1); SODIUM LEVEL 138 MMOL/L (136-145)
[2023-08-10 07:08] LABS: BASO % 0.6 % (0.0-1.0); EOS # 0.2 10^3/uL (0.0-0.5); EOS % 4.9 % (0.0-3.0); HEMATOCRIT 25.4 % (36.0-47.0); HEMOGLOBIN 8.1 g/dl (12.0-15.5); LYMPH # 1.3 10^3/uL (1.5-5.0); LYMPH % 27.3 % (24.0-44.0); MEAN CORPUSCULAR HGB CONC 31.9 g/dl (32.0-36.5); MONO # 0.4 10^3/uL (0.0-0.8); MONO % 7.6 % (2.0-8.0); NEUTROPHILS # 2.8 10^3/uL (1.5-8.5); NEUTROPHILS % 59.4 % (36.0-66.0); PLATELET COUNT, AUTOMATED 165 10^3/uL (150-450); RED BLOOD COUNT 2.79 10^6/uL (4.00-5.40); WHITE BLOOD COUNT 4.7 10^3/uL (4.0-10.0)
[2023-08-10 14:00] VITALS: BP 146/80; TEMP 98.1; O2SAT 94
[2023-08-10 22:03] VITALS: BP 145/84; TEMP 97.3; O2SAT 98
[2023-08-11 06:07] VITALS: BP 144/84; TEMP 97.7; O2SAT 97
[2023-08-11 07:06] LABS: BASO % 0.5 % (0.0-1.0); EOS # 0.2 10^3/uL (0.0-0.5); EOS % 5.4 % (0.0-3.0); HEMATOCRIT 25.1 % (36.0-47.0); LYMPH % 26.7 % (24.0-44.0); MEAN CORPUSCULAR HEMOGLOBIN 28.7 pg (27.0-33.0); MEAN CORPUSCULAR HGB CONC 31.9 g/dl (32.0-36.5); MONO # 0.4 10^3/uL (0.0-0.8); MONO % 9.3 % (2.0-8.0); NEUTROPHILS # 2.2 10^3/uL (1.5-8.5); NEUTROPHILS % 57.8 % (36.0-66.0); PLATELET COUNT, AUTOMATED 171 10^3/uL (150-450); RED BLOOD COUNT 2.79 10^6/uL (4.00-5.40); WHITE BLOOD COUNT 3.9 10^3/uL (4.0-10.0)
[2023-08-11 07:30] VITALS: BP 122/76; TEMP 97.5
[2023-08-11 07:43] LABS: BLOOD UREA NITROGEN 9 MG/DL (9-23); CALCIUM LEVEL 8.7 MG/DL (8.3-10.6); CARBON DIOXIDE LEVEL 31 MMOL/L (20-31); CHLORIDE LEVEL 103 MMOL/L (98-107); CREATININE FOR GFR 0.84 MG/DL (0.55-1.30); GLOMERULAR FILTRATION RATE > 60.0 (>45); GLUCOSE, FASTING 84 MG/DL (74-106); POTASSIUM SERUM 4.2 MMOL/L (3.5-5.1); SODIUM LEVEL 137 MMOL/L (136-145)
[2023-08-11] MEDS: OMEPRAZOLE 20MG CAP PO SCH (08:46)
[2023-08-11] MEDS: ONDANSETRON 4MG 2ML VIAL IV PRN (09:53)
[2023-08-11] MEDS: CALCIUM CARBONATE 500 MG CHEW U/D PO ONE (09:54)
== END 2023-08-11 12:15 | disposition home health service (06) | DRG 493 ==
LOC: M SDC 06:04 → M MSPAV 06:05 → OBSVTOIN 08-08 10:32 → M MS5PR 08-08 15:23
PROVIDERS: ADMIT Internal Medicine; ATTEND Student in an Organized Health Care Education/Training Program
PROC: 0PPF04Z Removal of Internal Fixation Device from Right Humeral Shaft, Open Approach (ICD-10-PCS; 2023-08-05)
PROC: 0PUF0JZ Supplement Right Humeral Shaft with Synthetic Substitute, Open Approach (ICD-10-PCS; 2023-08-05)
PROC: 0PSF06Z Reposition Right Humeral Shaft with Intramedullary Internal Fixation Device, Open Approach (ICD-10-PCS; principal; 2023-08-05 07:30)
DX: S42.301K Unspecified fracture of shaft of humerus, right arm, subsequent encounter for fracture with nonunion (principal); D62 Acute posthemorrhagic anemia; K21.9 Gastro-esophageal reflux disease without esophagitis; F39 Unspecified mood [affective] disorder; G43.909 Migraine, unspecified, not intractable, without status migrainosus; M54.9 Dorsalgia, unspecified; G89.29 Other chronic pain; E83.42 Hypomagnesemia; K59.00 Constipation, unspecified; L43.8 Other lichen planus; Z87.890 Personal history of sex reassignment; Z79.899 Other long term (current) drug therapy

== ENCOUNTER → 2023-09-30 | Outpatient (REF) | payer MEDICARE ==
[2023-09-30 18:01] LABS: BASO % 0.6 % (0.0-1.0); EOS # 0.1 10^3/uL (0.0-0.5); EOS % 0.7 % (0.0-3.0); HEMATOCRIT 31.9 % (36.0-47.0); HEMOGLOBIN 9.9 g/dl (12.0-15.5); LYMPH # 0.9 10^3/uL (1.5-5.0); LYMPH % 13.8 % (24.0-44.0); MEAN CORPUSCULAR VOLUME 80.6 fl (80.0-96.0); MONO # 0.4 10^3/uL (0.0-0.8); MONO % 5.2 % (2.0-8.0); NEUTROPHILS # 5.3 10^3/uL (1.5-8.5); NEUTROPHILS % 79.4 % (36.0-66.0); PLATELET COUNT, AUTOMATED 239 10^3/uL (150-450); RED BLOOD COUNT 3.96 10^6/uL (4.00-5.40); WHITE BLOOD COUNT 6.7 10^3/uL (4.0-10.0)
[2023-09-30 18:27] LABS: ALBUMIN 3.5 G/DL (3.2-5.2); ALKALINE PHOSPHATASE 95 U/L (46-116); ALT/SGPT 11 U/L (7.0-40); AST/SGOT < 8 U/L (<34); BILIRUBIN,TOTAL < 0.2 MG/DL (0.3-1.2); BLOOD UREA NITROGEN 16 MG/DL (9-23); CALCIUM LEVEL 9.2 MG/DL (8.3-10.6); CARBON DIOXIDE LEVEL 28 MMOL/L (20-31); CHLORIDE LEVEL 105 MMOL/L (98-107); CREATININE FOR GFR 0.96 MG/DL (0.55-1.30); GLOMERULAR FILTRATION RATE > 60.0 (>45); GLUCOSE, FASTING 106 MG/DL (74-106); POTASSIUM SERUM 3.7 MMOL/L (3.5-5.1); SODIUM LEVEL 139 MMOL/L (136-145); TOTAL PROTEIN 6.7 G/DL (5.7-8.2)
[2023-09-30 18:28] LABS: FREE T4 0.99 NG/DL (0.89-1.76); THYROID STIMULATING HORMONE 3.385 uIU/ML (0.55-4.78); VITAMIN B12 LEVEL 151 PG/ML (211-911)
[2023-09-30 18:29] LABS: TOTAL 25(OH) VITAMIN D 22.9 NG/ML (20.0-100.0)
[2023-09-30 18:30] LABS: FOLATE 15.23 NG/ML (>5.4)
== END ==
LOC: M SFHCLERA 09:35
PROVIDERS: ATTEND Family Medicine
DX: R51.9 Headache, unspecified (principal); R42 Dizziness and giddiness; R35.0 Frequency of micturition; E07.9 Disorder of thyroid, unspecified; Z79.899 Other long term (current) drug therapy

== ENCOUNTER → 2023-10-07 | Outpatient (CLI) | payer MEDICARE | LOC: M PLAIMG 09:29 | PROVIDERS: ATTEND Family Medicine | DX: R51.9 Headache, unspecified (principal) ==

== ENCOUNTER → 2023-11-26 | Outpatient (CLI) | payer MEDICARE | LOC: M PLARAD 12:48 | PROVIDERS: ATTEND Family Medicine | DX: G43.909 Migraine, unspecified, not intractable, without status migrainosus (principal) ==

== ENCOUNTER → 2023-12-09 | Outpatient (REF) | payer MEDICARE ==
[2023-12-09 19:16] LABS: PERCENT SATURATION 6.1 % (13.2-45.0)
[2023-12-09 19:19] LABS: FERRITIN 5.8 NG/ML (7.3-270.7)
== END ==
LOC: M SFHCLERA 10:12
PROVIDERS: ATTEND Family Medicine
DX: D50.9 Iron deficiency anemia, unspecified (principal)

== ENCOUNTER → 2023-12-09 | Outpatient (CLI) | payer MEDICARE ==
[2023-12-09 18:54] LABS: BASO % 0.5 % (0.0-1.0); EOS # 0.2 10^3/uL (0.0-0.5); EOS % 2.7 % (0.0-3.0); HEMATOCRIT 36.2 % (36.0-47.0); HEMOGLOBIN 11.1 g/dl (12.0-15.5); LYMPH # 1.2 10^3/uL (1.5-5.0); LYMPH % 18.5 % (24.0-44.0); MEAN CORPUSCULAR HEMOGLOBIN 24.1 pg (27.0-33.0); MEAN CORPUSCULAR HGB CONC 30.7 g/dl (32.0-36.5); MEAN CORPUSCULAR VOLUME 78.7 fl (80.0-96.0); MONO # 0.4 10^3/uL (0.0-0.8); MONO % 5.7 % (2.0-8.0); NEUTROPHILS # 4.6 10^3/uL (1.5-8.5); NEUTROPHILS % 72.1 % (36.0-66.0); PLATELET COUNT, AUTOMATED 238 10^3/uL (150-450); WHITE BLOOD COUNT 6.3 10^3/uL (4.0-10.0)
[2023-12-09 19:17] LABS: FOLATE 8.4 NG/ML (>5.4); THYROID STIMULATING HORMONE 1.906 uIU/ML (0.55-4.78)
[2023-12-09 19:19] LABS: VITAMIN B12 LEVEL 512 PG/ML (211-911)
[2023-12-09 19:21] LABS: ALBUMIN 3.4 G/DL (3.2-5.2); ALKALINE PHOSPHATASE 97 U/L (46-116); ALT/SGPT 11 U/L (7.0-40); AST/SGOT 8 U/L (<34); BILIRUBIN,TOTAL 0.2 MG/DL (0.3-1.2); BLOOD UREA NITROGEN 18 MG/DL (9-23); CALCIUM LEVEL 9.2 MG/DL (8.3-10.6); CARBON DIOXIDE LEVEL 26 MMOL/L (20-31); CHLORIDE LEVEL 108 MMOL/L (98-107); CREATININE FOR GFR 0.97 MG/DL (0.55-1.30); GLOMERULAR FILTRATION RATE > 60.0 (>45); GLUCOSE, FASTING 88 MG/DL (74-106); POTASSIUM SERUM 4.9 MMOL/L (3.5-5.1); SODIUM LEVEL 138 MMOL/L (136-145); TOTAL PROTEIN 6.8 G/DL (5.7-8.2)
[2023-12-15 19:27] LABS: VITAMIN E(ALPHA TOCOPHEROL) 19.2 mg/L (5.7-19.9); VITAMIN E(GAMMA TOCOPHEROL) 1.1 mg/L (<=4.3)
[2023-12-16 17:02] LABS: VITAMIN B1 LEVEL WHOLE BLOOD 98 nmol/L (78-185)
[2023-12-16 18:22] LABS: VITAMIN B6,PYRIDOXAL PHOSPHATE < 2.0 ng/mL (2.1-21.7)
== END ==
LOC: M LRY 10:18
PROVIDERS: ATTEND Psychiatry & Neurology Neurology
DX: R51.9 Headache, unspecified (principal); R42 Dizziness and giddiness; Z79.899 Other long term (current) drug therapy

== ENCOUNTER → 2024-05-23 | Outpatient (REF) | payer MEDICARE ==
[~2024-05-23] MED LIST changes: -CYCL5TAB PO; +CYCL5TAB4 PO; +NYST1POW3 TOP; -NYST1POW9 TOP
[2024-05-23 13:17] LABS: HEMOGLOBIN 13.7 g/dl (12.0-15.5); MEAN CORPUSCULAR HEMOGLOBIN 29.1 pg (27.0-33.0); MEAN CORPUSCULAR HGB CONC 32.6 g/dl (32.0-36.5); MEAN CORPUSCULAR VOLUME 89.2 fl (80.0-96.0); PLATELET COUNT, AUTOMATED 228 10^3/uL (150-450); RED BLOOD COUNT 4.71 10^6/uL (4.00-5.40); WHITE BLOOD COUNT 10.6 10^3/uL (4.0-10.0)
[2024-05-23 13:37] LABS: ALBUMIN 3.4 G/DL (3.2-5.2); ALKALINE PHOSPHATASE 60 U/L (35-104); ALT/SGPT 13 U/L (7.0-40); AST/SGOT < 8 U/L (<34); BILIRUBIN,TOTAL 0.3 MG/DL (0.3-1.2); BLOOD UREA NITROGEN 20 MG/DL (9-23); CALCIUM LEVEL 9.1 MG/DL (8.3-10.6); CARBON DIOXIDE LEVEL 27 MMOL/L (20-31); CHLORIDE LEVEL 107 MMOL/L (98-107); CREATININE FOR GFR 0.97 MG/DL (0.55-1.30); GLOMERULAR FILTRATION RATE > 60.0 (>45); GLUCOSE, FASTING 84 MG/DL (74-106); POTASSIUM SERUM 3.9 MMOL/L (3.5-5.1); SODIUM LEVEL 141 MMOL/L (136-145); TOTAL PROTEIN 6.4 G/DL (5.7-8.2)
[2024-05-23 13:50] LABS: HEPATITIS B SURFACE ANTIGEN NEGATIVE (NEGATIVE)
[2024-05-23 14:02] LABS: HIV 1&2 SCREEN NEGATIVE (NEGATIVE)
[2024-05-23 14:09] LABS: HEPATITIS C VIRUS ABY INDEX < 0.02 INDEX (<0.8)
[2024-05-23 14:10] LABS: HEPATITIS B CORE ANTIBODY IGM NEGATIVE (NEGATIVE)
== END ==
LOC: M SFHCDERM 09:12
PROVIDERS: ATTEND Nurse Practitioner Family
DX: L40.9 Psoriasis, unspecified (principal)

== ENCOUNTER 2024-07-03 13:04 | Emergency (ER) | payer MEDICARE ==
[~2024-07-03] VITALS: Ht 154.9 cm; Wt 87.5 kg
[~2024-07-03 13:04] MED LIST changes: +CLOT15CR4 TOP; -CVS1CRE56 TOP
[2024-07-03 13:13] VITALS: TEMP 97.9
[2024-07-03] MEDS: NS (Normal Saline) 0.9% 1,000 ML IV SCH (14:00)
[2024-07-03 14:43] LABS: BASO % 0.3 % (0.0-1.0); EOS # 0.1 10^3/uL (0.0-0.5); EOS % 0.8 % (0.0-3.0); HEMATOCRIT 40.7 % (36.0-47.0); HEMOGLOBIN 13.9 g/dl (12.0-15.5); LYMPH # 1.4 10^3/uL (1.5-5.0); LYMPH % 23.8 % (24.0-44.0); MEAN CORPUSCULAR HEMOGLOBIN 29.6 pg (27.0-33.0); MEAN CORPUSCULAR HGB CONC 34.2 g/dl (32.0-36.5); MEAN CORPUSCULAR VOLUME 86.8 fl (80.0-96.0); MONO # 0.4 10^3/uL (0.0-0.8); MONO % 6.8 % (2.0-8.0); NEUTROPHILS # 4.1 10^3/uL (1.5-8.5); NEUTROPHILS % 67.5 % (36.0-66.0); PLATELET COUNT, AUTOMATED 174 10^3/uL (150-450); RED BLOOD COUNT 4.69 10^6/uL (4.00-5.40); WHITE BLOOD COUNT 6.1 10^3/uL (4.0-10.0)
[2024-07-03] MEDS: ONDANSETRON 4MG 2ML VIAL IV ONE (14:55)
[2024-07-03] MEDS: MORPHINE 2 MG/ML 1ML VIAL IV PRN (14:56)
[2024-07-03 15:04] LABS: LIPASE 48 U/L (12-53)
[2024-07-03 15:06] LABS: ALBUMIN 3.2 G/DL (3.2-5.2); ALKALINE PHOSPHATASE 53 U/L (35-104); ALT/SGPT 18 U/L (7.0-40); AST/SGOT 14 U/L (<34); BILIRUBIN,DIRECT 0.1 MG/DL (<0.4); BILIRUBIN,TOTAL 0.4 MG/DL (0.3-1.2); BLOOD UREA NITROGEN 11 MG/DL (9-23); CALCIUM LEVEL 8.7 MG/DL (8.3-10.6); CARBON DIOXIDE LEVEL 29 MMOL/L (20-31); CHLORIDE LEVEL 106 MMOL/L (98-107); CREATININE FOR GFR 0.88 MG/DL (0.55-1.30); GLOMERULAR FILTRATION RATE > 60.0 (>45); GLUCOSE, FASTING 98 MG/DL (74-106); POTASSIUM SERUM 3.1 MMOL/L (3.5-5.1); SODIUM LEVEL 142 MMOL/L (136-145); TOTAL PROTEIN 5.9 G/DL (5.7-8.2)
[2024-07-03] MEDS ORDERED: ISOVUE-370 76% 100ML VIAL As Ordered ONE (15:16)
[2024-07-03] MEDS: POTASSIUM CHLORIDE 10MEQ SR TABLET PO ONE (15:40)
[2024-07-03] MEDS ORDERED: SUCR1SS PO (16:49)
[2024-07-03] MEDS ORDERED: PROT1TAB2 PO (16:50)
[2024-07-03] MEDS ORDERED: REGL5TAB2 PO (16:50)
[2024-07-03] MEDS: PANTOPRAZOLE 40MG VIAL IV ONE (16:52)
[2024-07-03] MEDS: SUCRALFATE SUSP 1GM/10ML UD PO ONE (16:52)
[2024-07-03 17:34] VITALS: BP 122/68; O2SAT 98
== END 2024-07-03 17:55 | disposition home or self-care (01) ==
LOC: M ED 13:04
DX: R10.9 Unspecified abdominal pain (principal); F41.9 Anxiety disorder, unspecified; F32.A Depression, unspecified; F17.210 Nicotine dependence, cigarettes, uncomplicated; Z79.899 Other long term (current) drug therapy
CPT/HCPCS: 74177; 80048; 80076; 83605; 83690; 85025; 96374; 96375; 99284; J2405; J2470; Q9967

== ENCOUNTER → 2024-09-07 | Outpatient (REF) | payer MEDICARE ==
[~2024-09-07] MED LIST changes: +PROT1TAB2 PO; +REGL5TAB2 PO; +SUCR1SS PO
[2024-09-07 13:01] LABS: BASO % 0.5 % (0.0-1.0); EOS # 0.2 10^3/uL (0.0-0.5); EOS % 2.8 % (0.0-3.0); HEMATOCRIT 41.5 % (36.0-47.0); HEMOGLOBIN 13.5 g/dl (12.0-15.5); LYMPH # 1.5 10^3/uL (1.5-5.0); MEAN CORPUSCULAR HEMOGLOBIN 29.9 pg (27.0-33.0); MEAN CORPUSCULAR HGB CONC 32.5 g/dl (32.0-36.5); MEAN CORPUSCULAR VOLUME 91.8 fl (80.0-96.0); MONO # 0.4 10^3/uL (0.0-0.8); MONO % 6.3 % (2.0-8.0); NEUTROPHILS # 3.7 10^3/uL (1.5-8.5); NEUTROPHILS % 64.2 % (36.0-66.0); PLATELET COUNT, AUTOMATED 178 10^3/uL (150-450); RED BLOOD COUNT 4.52 10^6/uL (4.00-5.40); WHITE BLOOD COUNT 5.7 10^3/uL (4.0-10.0)
[2024-09-07 13:04] LABS: THYROID STIMULATING HORMONE 3.578 uIU/ML (0.55-4.78)
[2024-09-07 13:05] LABS: ALBUMIN 3.2 G/DL (3.2-5.2); BILIRUBIN,TOTAL 0.3 MG/DL (0.3-1.2); CALCIUM LEVEL 9.1 MG/DL (8.3-10.6); CHOLESTEROL RISK RATIO 2.69 (<5); CREATININE FOR GFR 0.94 MG/DL (0.55-1.30); GLOMERULAR FILTRATION RATE 66.9 (>45); HDL CHOLESTEROL 83.9 MG/DL (>40); LDL CHOLESTEROL 103.3 MG/DL (<100); NON-HDL-C 142.1 MG/DL; POTASSIUM SERUM 3.9 MMOL/L (3.5-5.1); TOTAL PROTEIN 6.1 G/DL (5.7-8.2)
[2024-09-07 13:20] LABS: HEMOGLOBIN A1c 4.9 % (4.0-6.0)
== END ==
LOC: M SFHCCLAY 08:21
PROVIDERS: ATTEND Family Medicine
DX: Z00.00 Encounter for general adult medical examination without abnormal findings (principal); E78.00 Pure hypercholesterolemia, unspecified